=== PATIENT | female | born 1990 | race African-American/Black ===

== ENCOUNTER 2020-03-12 09:21 | Emergency (ER) | payer OTHER, SELFPAY ==
--- NOTE | 2020-03-12 09:33 | PC.NURSE ---
0933- 1st attempt to contact, phone went straight to voicemail.
--- NOTE | 2020-03-12 09:36 | PC.NURSE ---
2nd attempt to contact, straight to voicemail.
--- NOTE | 2020-03-12 09:39 | PC.NURSE ---
3rd attempt to contact, phone rang once then went to voicemail.
--- NOTE | 2020-03-12 09:50 | ED.FEMALEGU ---
HPI - Female Genitourinary General Chief complaint: Urogenital-Female Stated complaint: ABD PAIN/FREQUENT URINATION Source: patient and RN notes reviewed Mode of arrival: ambulatory Limitations: no limitations History of Present Illness HPI Narrative: 30-year-old female presents to urgent care with complaints of urinary symptoms and vaginal discharge. Patient states that she first noticed this am. No concern with STD. States that she has had nausea for 1 month. unprotected sex 2 days ago. Related Data Allergies Allergy/AdvReac Type Severity Reaction Status Date / Time latex Allergy Swelling Verified 03/12/20 09:48 Review of Systems Review of Systems: Narrative: CONSTITUTIONAL: Denies fever, chills, or sweats. EYES: Denies visual changes, redness, or discharge. ENT: Denies rhinorrhea, congestion, sore throat, or otalgia. CARDIOVASCULAR: Denies chest pain, palpitations, or edema. RESPIRATORY: Denies cough or dyspnea. GASTROINTESTINAL: Denies abdominal pain, vomiting, or diarrhea. Nausea x1 month GENITOURINARY: Reports dysuria. Denies hematuria. SKIN: Denies rash or itching. MUSCULOSKELETAL: Denies back pain, joint pain, or myalgia. NEUROLOGIC: Denies headache, numbness, or weakness. PSYCHIATRIC: Denies anxiety or depression. All other systems reviewed are negative, except as documented in HPI. PMFSH Social History Social History Gender identity (if verbalized by the patient): Female Comments At the time of my signature, I reviewed and agree with the nursing past medical, surgical, social, and family history. There is no relevant family history pertinent to the patient complaint. Exam Narrative: Exam Narrative: GENERAL: This is a well-nourished, well-developed patient, in no apparent distress. HEAD: normocephalic, atraumatic. EYES: PERRL. Sclera clear/white. Vision is grossly intact. NECK: Neck supple, non-tender without lymphadenopathy, masses or thyromegaly. CARDIOVASCULAR: Regular rate and rhythm without murmurs, gallops, or rubs. RESPIRATORY: Clear to auscultation. Breath sounds equal bilaterally. No wheezes, rales, or rhonchi. GASTROINTESTINAL: Abdomen soft, non-tender, nondistended. Bowel sounds are active. SKIN: warm, intact with no suspicious lesions or rash, good texture and turgor. NEURO: awake, alert, and oriented to person, place and time. There were no obvious focal neurologic abnormalities. EXTREMITIES: No clubbing, cyanosis, or edema. No joint tenderness, effusion, or edema noted. BACK: Nontender without deformity or crepitance. No flank tenderness. Upper exam offered, patient declined at this time stating that she does not have concern for an STD Course Vital Signs Vital signs: Vital Signs Temperature 98.7 F 03/12/20 09:54 Pulse Rate 69 03/12/20 09:54 Respiratory Rate 16 03/12/20 09:54 Blood Pressure 128/79 03/12/20 09:54 Pulse Oximetry 99 03/12/20 09:54 Temperature 98.7 F 03/12/20 09:54 Pulse Rate 69 03/12/20 09:54 Respiratory Rate 16 03/12/20 09:54 Blood Pressure 128/79 03/12/20 09:54 Pulse Oximetry 99 03/12/20 09:54 Reviewed within defined limits MDM - Female Genitourinary Differential Diagnosis Differential diagnosis: Likely urinary tract infection, bacterial vaginosis, trichomoniasis, vaginitis and cystitis Lab Data Labs: UCG Bedside Result Negative Reference Range: Negative Urine Glucose Negative Reference Range: Negative Urine Bilirubin Negative Reference Range: Negative Urine Ketone Negative Reference Range: Negative Urine Specific [place] 1.030 Reference Range:1.001-1.035 Urine Blood
[2020-03-12 09:54] VITALS: BP 128/79; PULSE 69; RESP 16; TEMP 37.1; O2SAT 99
== END 2020-03-12 10:08 | disposition home or self-care (01) ==
PROVIDERS: Emergency Provider Nurse Practitioner
DX: N39.0 Urinary tract infection, site not specified (principal)
CPT/HCPCS: 81003; 81025; 87077; 87086; 87088; 99213; G0463